=== PATIENT | female | born 1995 | race Caucasian/White ===

== ENCOUNTER 2017-10-30 21:27 | Outpatient (CLI) | payer OTHER | END 2017-10-31 17:22 | disposition home or self-care (01) | LOC: OBS/DEL 21:27 | DX: Z34.03 Encounter for supervision of normal first pregnancy, third trimester (principal); K52.89 Other specified noninfective gastroenteritis and colitis; J06.9 Acute upper respiratory infection, unspecified ==

== ENCOUNTER 2017-12-21 13:00 | Inpatient (IN) | payer OTHER ==
[~2017-12-21] VITALS: Ht 157.5 cm; Wt 3.2 kg
[~2017-12-21 13:00] MED LIST: PRENATABS FA T1 EACH PO
== END 2017-12-29 15:31 | disposition home or self-care (01) | DRG 765 ==
LOC: OB/GYN 12-26 09:00 → O/R 12-26 09:00 → OB/GYN 12-26 10:00
PROVIDERS: Obstetrics & Gynecology
PROC: 10907ZC Drainage of Amniotic Fluid, Therapeutic from Products of Conception, Via Natural or Artificial Opening (ICD-10-PCS; 2017-12-26)
PROC: 4A1HXCZ Monitoring of Products of Conception, Cardiac Rate, External Approach (ICD-10-PCS; 2017-12-26)
PROC: 10D00Z1 Extraction of Products of Conception, Low, Open Approach (ICD-10-PCS; principal; 2017-12-26 10:00)
DX: O64.1XX0 Obstructed labor due to breech presentation, not applicable or unspecified (principal); O75.3 Other infection during labor; Z3A.39 39 weeks gestation of pregnancy; Z37.0 Single live birth